=== PATIENT | male | born 1980 | race Hispanic/Latino ===

== ENCOUNTER 2018-06-11 17:27 | Emergency (ER) | payer SELFPAY ==
[2018-06-11] MEDS ORDERED: Lidocaine 1% (PF) 30 ML VIAL ONE (17:41)
[2018-06-11] MEDS ORDERED: Adacel (T-DAP) 0.5 ML VIAL ONE (17:46)
[2018-06-11] MEDS ORDERED: CEFAZOLIN 1 GM VIAL ONE (17:46)
[2018-06-11] MEDS ORDERED: Water For Injection,Sterile 20 ML ONE (17:48)
[2018-06-11] MEDS ORDERED: Bacitracin Zinc 1 Packet ONE (18:27)
--- NOTE | 2018-06-11 19:15 | RAD ---
FINGERS LEFT HAND THREE VIEWS: History: Left middle finger injury. FINDINGS/IMPRESSION: No fracture, dislocation, or osseous abnormality identified. POS: [facility]
== END 2018-06-11 18:36 | disposition home or self-care (01) ==
LOC: ERS 17:27
DX: S61.213A Laceration without foreign body of left middle finger without damage to nail, initial encounter (principal); Z23 Encounter for immunization; W26.0XXA Contact with knife, initial encounter; Y92.69 Other specified industrial and construction area as the place of occurrence of the external cause; Y99.0 Civilian activity done for income or pay
CPT/HCPCS: 12001; 90471; 90715; 96372; J0690; J2001

== ENCOUNTER 2024-08-23 09:37 | Outpatient (CLI) | payer BC | END 2024-08-23 09:38 | disposition home or self-care (01) | LOC: ULT 09:37 | PROVIDERS: ATTEND Nurse Practitioner Family | DX: R10.84 Generalized abdominal pain (principal); K76.0 Fatty (change of) liver, not elsewhere classified | CPT/HCPCS: 76700; 76770 ==

== ENCOUNTER 2025-06-08 11:34 | Emergency (ER) | payer BC ==
[2025-06-08 12:08] LABS: Bacteria/HPF None Seen HPF (None Seen); CAUTI Indications for Culture Pelvic or flank pain; Glucose, Urine (Dipstick) Normal (Negative); Leukocyte 25 Leu/uL (Negative); Mucous/LPF 1+ LPF (<2+); Protein, Urine (Dipstick) 20 mg/dL (Neg-Trace); RBC/HPF 0-3 HPF (0-3); Specific Gravity, Urine 1.023 (1.002-1.036)
[2025-06-08 12:10] LABS: Urine Culture Reflex No No
[2025-06-08 12:26] LABS: #Basophils Less than 0.03 10x3/uL (0.0-0.2); #Eosinophils 0.04 10x3/uL (0.0-0.7); #Monocytes 0.45 10x3/uL (0.11-0.59); #Neutrophils 7.88 10x3/uL (1.40-6.50); %Basophils 0.2 % (0.0-1.0); %Eosinophils 0.4 % (0.0-10.0); %Lymphocytes 9.9 % (21.0-51.0); %Monocytes 4.8 % (0.0-10.0); %Neutrophils 84.4 % (42.0-75.0); Hematocrit 48.0 % (42.0-52.0); Hemoglobin 16.2 g/dL (14.0-18.0); Mean Corpuscular Hemoglobin 26.9 pg (27.0-31.0); Mean Corpuscular Volume 79.6 fL (78.0-98.0); Platelet Count 309 10x3/uL (130-400); Red Blood Cell (RBC) Count 6.03 mill/uL (4.70-6.10); White Blood Cell (WBC) Count 9.34 10x3/uL (4.8-10.8)
[2025-06-08] MEDS ORDERED: Iopamidol-370 76% 500 ML MDV (1 ML CHARGE) ONE (12:30)
[2025-06-08 13:09] LABS: ALT (SGPT) 60 U/L (Less than 45); AST (SGOT) 52 U/L (11-34); Albumin 4.5 g/dL (3.1-4.5); Alkaline Phosphatase 101 U/L (40-110); Anion Gap 20 mmol/L (10-20); BUN (Urea Nitrogen) 18 mg/dL (8.9-20.6); Bilirubin, Total 0.7 mg/dL (0.3-1.2); Calc. Creatinine Clearance 0 mL/min (70-130); Calcium 9.6 mg/dL (7.8-10.44); Carbon Dioxide 21 mmol/L (22-29); Chloride 107 mmol/L (98-107); Globulin 4.1 g/dL (2.4-3.5); Glucose 100 mg/dL (70-105); Lipase 14 U/L (8-78); Potassium 4.5 mmol/L (3.5-5.1); Sodium 143 mmol/L (136-145)
[2025-06-08] MEDS ORDERED: Cyclobenzaprine 10 MG TAB ONE (13:45)
[2025-06-08] MEDS ORDERED: Dicyclomine 20 MG TAB ONE (14:21)
== END 2025-06-08 14:29 | disposition home or self-care (01) ==
LOC: ERS 11:34
DX: R10.9 Unspecified abdominal pain (principal); M54.9 Dorsalgia, unspecified
CPT/HCPCS: 74177; 80053; 81001; 82550; 83690; 85025; Q9967